=== PATIENT | male | born 1965 | race Caucasian/White ===

== ENCOUNTER 2016-10-29 21:36 | Emergency (ER) | payer OTHER ==
[~2016-10-29] VITALS: Ht 203.2 cm; Wt 123.2 kg
[~2016-10-29 21:36] MED LIST: B-100 COMPLEX1 EACH PO; COQ-10100 MG PO; DAILY MULTIPLE1 EACH PO; DUONEB 2.5-0.5 M3 ML IH; EYE GUARD PLUS PO; HYDROCODON-ACE1 EAC7 PO; LISINOPRIL-HCT1 EAC3 PO; NEURONTIN300 MG PO; OMEGA 3-6-9 CO1 EACH PO; PREDNISONE20 MG PO; PREGNYL10000 UNIT IM; PROVENTIL,2.5 MG/3 M IH; ULTRAM50 MG PO; VICODIN 5-3001 EACH PO; VITAMIN D32000 UNI1 PO; VOLTAREN75 MG PO; ZESTORETIC 10-1 EAC1 PO; ZESTORETIC 20-1 EAC1 PO
[2016-10-30] MEDS ORDERED: NORCO 10/3251 TABLET PO (00:06)
[2016-10-30] MEDS ORDERED: INDOCIN50 MG PO (00:06)
[2016-10-30] MEDS ORDERED: CIPRO500 MG PO (00:06)
[2016-10-30 00:46] VITALS: BP 148/81
== END 2016-10-30 00:47 | disposition home or self-care (01) ==
LOC: EME 21:36 → RME 21:36
DX: M10.9 Gout, unspecified (principal); G62.9 Polyneuropathy, unspecified; S91.114A Laceration without foreign body of right lesser toe(s) without damage to nail, initial encounter; W26.8XXA Contact with other sharp object(s), not elsewhere classified, initial encounter; Y93.E8 Activity, other personal hygiene
CPT/HCPCS: 99281; 99284

== ENCOUNTER 2016-12-11 19:42 | Emergency (ER) | payer OTHER ==
[~2016-12-11] VITALS: Ht 203.2 cm; Wt 117.5 kg
[~2016-12-11 19:42] MED LIST changes: +CIPRO500 MG PO; +INDOCIN50 MG PO; +NORCO 10/3251 TABLET PO
[2016-12-11 20:23] LABS: EOSINOPHIL (%) 0 % (0-5); HEMATOCRIT 37.8 % (38.0-50.0); IMMATURE GRANULOCYTE (%) 0.2 % (0.0-0.7); INSTRUMENT ABS NEUTROPHIL CT 7.9 K/uL; LYMPHOCYTE COUNT 0.6 K/uL (1.0-2.8); MCH 30.2 PG (29.0-34.0); MCHC 34.7 G/DL (30.0-36.0); MCV 87.1 FL (86-99); MEAN PLAT.VOLUME 10.4 uM^3 (9.0-12.4); MONOCYTE (%) 5.6 % (3-12); MONOCYTE COUNT 0.5 K/uL (0-0.8); NEUTROPHIL (%) 87.4 % (45-76); NEUTROPHIL COUNT 7.9 K/uL (1.8-6.4); RBC DIS.WIDTH-SD 47.9 % (39-53); RED BLOOD COUNT 4.34 M/uL (4.00-5.50)
[2016-12-11 20:31] LABS: PLATELET COUNT 90 K/uL (156-360)
[2016-12-11 20:32] LABS: CHLORIDE 105 mEq/L (99-109); POTASSIUM 3.2 mEq/L (3.7-5.4); SODIUM 136 mEq/L (136-147)
[2016-12-11 20:34] LABS: GLUCOSE 118 mg/dL (70-99)
[2016-12-11 20:36] LABS: ANION GAP 11 MEQ/L (2-14)
[2016-12-11 20:38] LABS: GFR ESTIMATE (CALCULATED) > 59 mL/min/
[2016-12-11 20:39] LABS: UREA NITROGEN (BUN) 28 mg/dL (9-23)
[2016-12-11] MEDS ORDERED: KEFLEX500 MG PO (21:28)
[2016-12-11 22:25] VITALS: BP 123/67
[2016-12-13] MEDS ORDERED: TYLENOL WITH C1 EACH PO (19:45)
[2016-12-14] MEDS ORDERED: VITAMIN B-12250 MC2 PO (13:44)
[2016-12-14] MEDS ORDERED: TESTOSTERO200 MG/12 IM (13:46)
== END 2016-12-11 22:36 | disposition home or self-care (01) ==
LOC: EXP 19:42 → EME 19:42 → EXP 22:36
DX: L03.116 Cellulitis of left lower limb (principal); I10 Essential (primary) hypertension; J45.909 Unspecified asthma, uncomplicated; Z86.718 Personal history of other venous thrombosis and embolism; Z85.828 Personal history of other malignant neoplasm of skin; Z87.442 Personal history of urinary calculi; Z88.1 Allergy status to other antibiotic agents; Z88.2 Allergy status to sulfonamides
CPT/HCPCS: 80048; 83605; 85025; 87040; 93971; 99281; 99285; J0696; J1885; J7030; J7050

== ENCOUNTER 2017-05-01 21:44 | Emergency (ER) | payer BC ==
[~2017-05-01] VITALS: Ht 203.2 cm; Wt 124.9 kg
[~2017-05-01 21:44] MED LIST changes: +KEFLEX500 MG PO; +TESTOSTERO200 MG/12 IM; +TYLENOL WITH C1 EACH PO; +VITAMIN B-12250 MC2 PO
[2017-05-02] MEDS ORDERED: MEDROL DOSEPAK4 MG PO (00:47)
[2017-05-02] MEDS ORDERED: PERCOCET 5/31 TABLET PO (00:47)
[2017-05-02] MEDS ORDERED: NORCO 5/3251 TABLET PO (01:12)
[2017-05-02 01:24] VITALS: BP 156/89
== END 2017-05-02 01:25 | disposition home or self-care (01) ==
LOC: EME 21:44
DX: M79.675 Pain in left toe(s) (principal); G62.9 Polyneuropathy, unspecified; Z88.2 Allergy status to sulfonamides
CPT/HCPCS: 99281; 99284